=== PATIENT | female | born 1995 | race Caucasian/White ===

== ENCOUNTER 2020-10-30 12:47 | Outpatient (REF) | payer OTHER, SELFPAY | END 2020-10-30 12:48 | disposition home or self-care (01) | LOC: HO.LAB 12:47 | PROVIDERS: Visit Provider Internal Medicine | DX: Z20.828 Contact with and (suspected) exposure to other viral communicable diseases (principal) | CPT/HCPCS: C9803; U0003 ==

== ENCOUNTER 2021-05-17 12:59 | Outpatient (REF) | payer OTHER, SELFPAY ==
[2021-05-18 02:28] LABS: CT PCR NOT DETECTED (Not Detect.); NG PCR NOT DETECTED (Not Detect.)
[2021-05-18 11:16] LABS: BV Int Neg Control Negative (Negative); BV Int Pos Control Positive (Positive)
== END 2021-05-17 13:00 | disposition home or self-care (01) ==
LOC: HO.LAB 12:59
PROVIDERS: Visit Provider Obstetrics & Gynecology
DX: Z01.419 Encounter for gynecological examination (general) (routine) without abnormal findings (principal); Z11.3 Encounter for screening for infections with a predominantly sexual mode of transmission
CPT/HCPCS: 81025; 87480; 87491; 87510; 87591; 87660

== ENCOUNTER 2021-10-04 10:18 | Emergency (ER) | payer OTHER, SELFPAY ==
[2021-10-04 10:31] VITALS: BP 117/73; PULSE 113; RESP 16; TEMP 37.2; O2SAT 96; BMI 27.8
--- NOTE | 2021-10-04 11:11 | ED.GENADULT ---
HPI - General Adult General Chief complaint: General Medical Stated complaint: vomiting Time Seen by Provider: 10/04/21 10:39 History of Present Illness HPI narrative: Patient is 26 years old presented today with having generalized malaise aches nausea family's been coughing congested upper respiratory symptoms. Patient did not get vaccinated for COVID. Symptoms been ongoing for 3 days. Positive total body malaise. Minimal coughing. Positive nausea. Positive diarrhea. No abdominal cramping. Related Data Previous Rx's Medication Instructions Recorded norelgestromin 150 mcg-e.estradiol 1 patch TRANSDERMAL QWEEK #3 ea 05/17/21 35 mcg/24 hr weekly transderm patch (Xulane) ibuprofen 400 mg tablet 400 mg PO Q6H PRN #20 tab 10/04/21 ondansetron HCl 4 mg tablet 4 mg PO Q8H PRN #10 tab 10/04/21 (Zofran) Allergies Allergy/AdvReac Type Severity Reaction Status Date / Time No Known Allergies Allergy Verified 05/17/21 13:09 Review of Systems Review of Systems: Positive generalized malaise Positive nausea Minimal coughing No change in smell or taste Yes all other systems are reviewed and are negative [facility] Past Medical History Medical History Anemia Surgical History History of delivery Social History Social History Advance Directives: No Patient : No Physical Exam Vital Signs: Vital Signs: Last Vital Signs Temp 98.9 F 10/04/21 10:31 Pulse 113 H 10/04/21 10:31 Resp 16 10/04/21 10:31 BP 117/73 10/04/21 10:31 Pulse Ox 96 10/04/21 10:31 Body Mass Index 27.8 Appearance: Alert. Oriented X3. No acute distress. Eyes: Pupils equal, round and reactive to light. ENT: Pharynx normal. Neck: Normal inspection. Neck supple. No lymph nodes noted. No crepitus CVS: Normal heart rate and rhythm. Pulses normal. Normal S1 and S2 Respiratory: No respiratory distress. Breath sounds normal. No Wheezing. No rales Abdomen: Soft and nontender. No rigidity. No distention. good BS x4 Skin: Skin warm and dry. Normal skin color. Normal skin turgor. Extremities: No lower extremity edema. Neurovascular intact to all extremities. No Lacerations. No Rash Neuro: Oriented X 3. No motor deficit. No sensory deficit. Moving all extermities. No slurred speech Medical Decision Making MDM Narrative Medical decision making narrative: Well-appearing flu RSV COVID were negative. Will discharge patient home. Lots of fluid hydrate Motrin for aches. In stable condition. Lab Data Labs: Lab Results 10/04/21 Range/Units Unknown Influenza Type A (PCR) NEGATIVE (Negative) Influenza Type B (PCR) NEGATIVE (Negative) RSV RNA Qual (PCR) NEGATIVE (Negative) SARS-CoV-2 RNA (RT-PCR) NEGATIVE (Negative) Discharge Plan Discharge Clinical Impression: Acute viral syndrome Patient Disposition: Home, Self-Care Instructions: Viral Syndrome (ED) Prescriptions: New ondansetron HCl [Zofran] 4 mg tablet 4 mg PO Q8H PRN (Reason: nausea and vomiting) Qty: 10 RF: 0 ibuprofen 400 mg tablet 400 mg PO Q6H PRN (Reason: pain) Qty: 20 RF: 0 No Action Xulane 150-35 mcg/24 hr patch weekly 1 patch transdermal QWEEK Qty: 3 RF: 11
[2021-10-04 12:45] LABS: Influenza A PCR NEGATIVE (Negative); Influenza B PCR NEGATIVE (Negative); Resp Syncy Virus RNA Qual PCR NEGATIVE (Negative); SARS COV2 PCR INHOUSE NEGATIVE (Negative)
== END 2021-10-04 14:10 | disposition home or self-care (01) ==
PROVIDERS: Emergency Provider Emergency Medicine Emergency Medical Services
DX: B34.9 Viral infection, unspecified (principal); Z20.822 Contact with and (suspected) exposure to COVID-19
CPT/HCPCS: 0241U; 36415; 99282; 99283

== ENCOUNTER 2022-06-21 20:04 | Inpatient (IN) | payer OTHER, SELFPAY ==
--- NOTE | ~2022-06-21 | CT_ITS ---
EXAMINATION: CT ANGIOGRAM OF THE CHEST WITH AND WITHOUT CONTRAST (CT PULMONARY ANGIOGRAM FOR PE) CLINICAL INFORMATION: Reason for Exam tachycardic, hemoptysis? high dimer COMPARISON: CT abdomen/pelvis dated 02/14/2014 are couple areas of discrete increased attenuation within the diffusely fatty infiltration TECHNIQUE: Prior to contrast administration, noncontrast localization images were obtained. Subsequently, multidetector volumetric imaging was performed from the thoracic inlet to below the diaphragms following the administration of 65 mL Omnipaque 350 intravenous contrast. No contrast reaction reported Sagittal, coronal, and MIP oblique sagittal reformatted images were obtained on the CT workstation, uploaded to PACS, and reviewed. This CT examination was performed using dose optimization techniques as appropriate, variously including the following: *Automated exposure control *Adjustment of mA and/or kV according to patient size (this includes techniques or standardized protocols for targeted exams where dose is matched to indication/reason for exam; i.e. extremities or head) *Use of iterative reconstruction technique Total exam dose-length product 188 mGy-cm FINDINGS: QUALITY OF STUDY/CONTRAST BOLUS: Satisfactory. PULMONARY ARTERIES: No central or segmental pulmonary emboli. THORACIC AORTA: No aneurysm or dissection. LUNG: No focal consolidation. There is a 3 mm nodule within right lower lobe. No additional pulmonary nodules. PLEURA: No pleural effusion or pneumothorax. MEDIASTINUM: Normal heart size. No pericardial effusion. No hilar or mediastinal lymphadenopathy. No evidence of septal bowing or right heart strain. CHEST WALL/AXILLA: No axillary or internal mammary lymphadenopathy. OSSEOUS STRUCTURES: No acute or suspicious osseous abnormality. UPPER ABDOMEN: Marked diffuse hepatic steatosis. There are a couple areas of relatively increased attenuation within the diffusely fatty hepatic parenchyma, notably within segment 8 near the IVC and laterally, most compatible with areas of sparing as vessels are seen coursing through them. Focal sparing present within the gallbladder fossa dorsal aspect of the medial segment.. CT/CT angio chest PE protocol IMPRESSION: * No pulmonary embolism. * No acute pulmonary parenchymal abnormalities. * Incidental 3 mm nodule within the right lower lobe, and punctate nodule in the lateral left upper lobe of doubtful clinical significance. Fleischner Society guidelines do not apply in patients of this age. The decision whether or not to surveillance nodules of this size in patients of this age is clinical. * Severe diffuse hepatic steatosis. VTE: NEGATIVE
--- NOTE | ~2022-06-21 | CT_ITS ---
EXAMINATION: CT HEAD WITHOUT CONTRAST CLINICAL INFORMATION: Fall with question loss of consciousness and acute mental status change. COMPARISON: Head CT 12/29/2018 TECHNIQUE: Imaging was performed from the skull base to vertex without intravenous administration of contrast. This CT examination was performed using dose optimization techniques as appropriate, variously including the following: *Automated exposure control *Adjustment of mA and/or kV according to patient size (this includes techniques or standardized protocols for targeted exams where dose is matched to indication/reason for exam; i.e. extremities or head) *Use of iterative reconstruction technique Total exam dose length product: 700 mGy-cm FINDINGS: No intra or extra-axial fluid collection, hemorrhage, or mass. No ventriculomegaly. No midline shift or herniation. Basal cisterns are patent. Mishra-white matter differentiation is maintained. No territorial encephalomalacia. No significant volume loss. There is no abnormal attenuation within the brain parenchyma. No calvarial fracture or soft tissue abnormality. Mucosal thickening with complete opacification of the visualized left maxillary antrum and anterior left ethmoid air cells. Mastoid air cells are normally aerated. CT/CT head/brain wo con IMPRESSION: 1. No acute intracranial pathology. 2. Left maxillary and ethmoid paranasal sinus disease.
--- NOTE | ~2022-06-21 | MR_ITS ---
EXAMINATION: MR ABDOMEN WITHOUT AND WITH CONTRAST CLINICAL INFORMATION: Follow up liver lesion seen on CT. COMPARISON: Previous CT of the abdomen and pelvis most recent 06/22/2022. TECHNIQUE: MR abdomen was performed without and with use of 7.5 mL intravenous Gadavist gadolinium contrast. Postcontrast images are performed in multiphase dynamic sequences. Imaging was performed in 3 planes. FINDINGS: LUNG BASES: The visualized lung bases are unremarkable. LIVER, GALLBLADDER, AND BILIARY TREE: The liver loses signal on out of phase sequences suggestive of severe fatty infiltration. The liver is normal in size and contour. There are 4 focal liver lesions. These measure 0.5 x 2.7 cm in the central right, 2.3 x 2 cm in the peripheral right lobe, 2.5 x 4 cm in the medial segment of the left lobe and 1 cm in the lateral segment of the left lobe. There is slightly low signal on T1-weighted sequences and high signal on T2-weighted sequences. These demonstrate early arterial phase enhancement and remain enhanced with respect to the liver on all later sequences following blood pool. There may be a right T2 nonenhancing central scar in the 2.3 x 2 cm lesion in the peripheral right lobe. Signal and enhancement pattern is not characteristic of hemangiomas. This may represent focal nodular hyperplasia. Differential would include multiple liver adenomas although no increased fat signal is seen and atypical appearance of focal fatty sparing, particularly 2.5 x 4 cm lesion in the medial segment of the left lobe. Malignant process cannot be completely excluded and short-term follow-up liver MRI in 3 months with Eovist is recommended. The gallbladder is normal. There is no intrahepatic or extrahepatic biliary duct dilatation. PANCREAS: Unremarkable. SPLEEN: Normal. ADRENAL GLANDS: Normal. KIDNEYS AND URETERS: The kidneys are normal in size, shape, and enhance symmetrically. There is a 1 cm right renal cyst. No hydronephrosis. No perinephric stranding. GASTROINTESTINAL TRACT: No bowel obstruction. No ascites or fluid collection. ABDOMINAL WALL: No significant hernia is appreciated. LYMPH NODES: No lymphadenopathy. VASCULAR: Unremarkable. OSSEOUS STRUCTURES: Marrow signal normal. MR/MR abdomen wo/w con IMPRESSION: Fatty liver. Multiple liver lesions, question representing areas of focal nodular hyperplasia. Differential would include liver adenomas although fat signal is not seen and atypical appearance of areas of focal fatty sparing. Signal and enhancement pattern is not suggestive of multiple hemangiomas. Malignant liver lesions cannot be completely excluded and short-term follow-up liver MRI with Eovist contrast in 3 months is recommended. Right renal cyst.
--- NOTE | ~2022-06-21 | CT_ITS ---
EXAMINATION: CT ABDOMEN AND PELVIS WITH CONTRAST CLINICAL INFORMATION: Abdominal pain. COMPARISON: 02/14/2014 TECHNIQUE: Multidetector volumetric images were obtained from the superior aspect of the liver through the pubic symphysis following administration 85 mL of Omnipaque 350 intravenous contrast. Sagittal and coronal reformatted images were obtained on the technologist's workstation. Oral contrast: No This CT examination was performed using dose optimization techniques as appropriate, variously including the following: *Automated exposure control *Adjustment of mA and/or kV according to patient size (this includes techniques or standardized protocols for targeted exams where dose is matched to indication/reason for exam; i.e. extremities or head) *Use of iterative reconstruction technique DLP: 653 mGy-cm FINDINGS: LUNG BASES: Mild dependent atelectasis. LIVER, GALLBLADDER, AND BILIARY TREE: Relative hypoattenuation of the hepatic parenchyma as compared to the spleen is most consistent with steatosis. Liver is at the upper limits of normal in size. Multiple lesions are present in the liver with increased attenuation is compared to the surrounding steatosis parenchyma. The largest of these measures 3.2 x 2.1 cm in greatest transaxial dimensions and, as seen on image 17/27 of series 3, extends into the adjacent right hepatic vein. Additional lesions include a peripheral 2.5 cm lesion in segment 5/8 laterally,, a 1.9 cm subcapsular lesion at the inferior aspect of hepatic segment 5. A 2.5 cm lesion within hepatic segment 4A/4B and a 1.1 cm lesion in the posterior aspect of segment 2. No biliary ductal dilatation. By tears excretion of contrast material is evident in the gallbladder. The gallbladder is otherwise unremarkable with no evidence of radiopaque gallstones, gallbladder wall thickening, or obvious pericholecystic inflammatory changes. PANCREAS: Unremarkable. SPLEEN: Unremarkable. ADRENAL GLANDS: Unremarkable. KIDNEYS AND URETERS: The kidneys are normal in size, shape, and attenuation. No hydronephrosis, hydroureter, or calculi seen. No perinephric stranding. BLADDER: Unremarkable. GASTROINTESTINAL TRACT: Stomach, small bowel, and colon are normal in caliber without bowel wall thickening or surrounding inflammatory changes. Small moderate retroperitoneal free fluid is evident in the pelvis, most notably at the right perirectal location, measuring fluid attenuation (10 Hounsfield units). No free air. Appendix is normal. ABDOMINAL WALL: No hernia. Prior section. 17 is gas in the anterior abdominal soft tissues, possibly injection related. LYMPH NODES: Normal. VASCULAR: Slight prominence of the gonadal veins. No acute vascular findings. PELVIC VISCERA: scar at the lower uterine segment. Uterus is otherwise normal in appearance. An involuting follicle/corpus luteum is evident at the left ovary with crenulated margins and peripheral enhancement. This is of doubtful clinical significance. No recommend imaging follow-up. OSSEOUS STRUCTURES: Unremarkable. CT/CT abdomen pelvis w con IMPRESSION: Small volume of low attenuation intrapelvic free fluid, likely physiologic. No acute intra-abdominal or intrapelvic findings. Hepatic steatosis with multiple new soft tissue attenuation hepatic lesions which were not present in 2014 and measure up to 3.2 cm. Further characterization of these lesions with MRI of the abdomen with and without contrast is advised. Focal subcutaneous gas in the subcutaneous fat of the anterior abdominal wall, possibly injection related. Fleischner guidelines were followed.
[2022-06-21 20:12] VITALS: PULSE 147; PULSE 154; RESP 40; O2SAT 95; O2SAT 98; BMI 25.0
--- NOTE | 2022-06-21 20:18 | ECG_ITS ---
Test Reason : TACHYCARDIA Blood Pressure : / mmHG Vent. Rate : 137 BPM Atrial Rate : 137 BPM P-R Int : 132 ms QRS Dur : 074 ms QT Int : 304 ms P-R-T Axes : 063 073 028 degrees QTc Int : 459 ms Sinus tachycardia Otherwise normal ECG No previous ECGs available Referred By: Elina Moran Electronically Signed By:OLIVIA LEVY
--- NOTE | 2022-06-21 20:22 | ED.GENADULT ---
HPI - General Adult General Chief complaint: General Medical Stated complaint: hyperventilating , vomiting blood Time Seen by Provider: 06/21/22 20:11 Source: EMS Mode of arrival: EMS Limitations: altered mental status History of Present Illness HPI narrative: Patient comes to the emergency room via EMS. Per EMS and patient's sister, 1 hour prior to arrival patient was home, talking to her significant other was in the stationed in [place]. The patient's significant other heard a thud and patient was not responding on the phone. He called the patient's sister who found the patient hyperventilating and vomiting. According to the patient's sister, there was blood in the vomit. They also found nearby and empty bottle of Tylenol. The patient's sister states that the patient has no history of previous SI attempts, anxiety, depression or any psychiatric illness. The patient's sister believes that if she took any medication, it was maximum 102 tablets. The patient is hyperventilating and unable to answer any questions Related Data Previous Rx's Medication Instructions Recorded norelgestromin 150 mcg-e.estradiol 1 patch transdermal QWEEK #3 ea 05/17/21 35 mcg/24 hr weekly transderm patch (Xulane) ibuprofen 400 mg tablet 400 mg PO Q6H PRN pain #20 tabs 10/04/21 ondansetron HCl 4 mg tablet 4 mg PO Q8H PRN nausea and 10/04/21 (Zofran) vomiting #10 tabs Allergies Allergy/AdvReac Type Severity Reaction Status Date / Time No Known Allergies Allergy Verified 05/17/21 13:09 Review of Systems Review of Systems: Yes Unobtainable due to mental condition [facility] Past Medical History Medical History Anemia Surgical History History of delivery Social History Social History Advance Directives: No Advance Directives Information Provided: No Physical Exam ED Vital Signs: Vital Signs - 24 hr 06/21/22 20:12 06/21/22 21:03 06/21/22 21:25 Temperature 101.4 F H Pulse Rate 154 H 125 H 115 H Respiratory Rate 40 H 24 H Blood Pressure 94/51 L Pulse Oximetry 95 96 99 Oxygen Delivery Method Room Air Room Air Room Air 06/21/22 21:40 06/21/22 23:33 06/21/22 23:40 Temperature 98.2 F 98.2 F Pulse Rate 113 H 100 Respiratory Rate 20 Blood Pressure 101/53 L 93/53 L Pulse Oximetry 97 Oxygen Delivery Method Room Air 06/22/22 01:09 06/22/22 01:55 06/22/22 02:00 Temperature Pulse Rate 107 H 55 90 Respiratory Rate 18 Blood Pressure 80/36 L 92/49 L 112/71 Pulse Oximetry 98 Oxygen Delivery Method Room Air 06/22/22 02:55 06/22/22 02:58 Temperature Pulse Rate 99 90 Respiratory Rate Blood Pressure 80/45 L 100/60 Pulse Oximetry 96 Oxygen Delivery Method Room Air BMI result Body Mass Index 25.0 Course Course Course Narrative: Seemed patient was having a panic attack on arrival, patient was given 4 mg of IV midazolam. Patient significantly uvula, patient was able to talk to us calmly and stop hyperventilating. Patient noted to be hypotensive, patient's blood pressure change likely secondary to Versed. Patient received 0.1 mg of IV push of phenylephrine to help with the blood pressure. Now 100 systolic. D-dimer elevated, CT scan for pulmonary embolism negative for PE. Patient likely has a viral illness. However, patient did also have a panic attack. Patient no longer febrile, patient requesting pain medication for pain ?all over?, patient given 1 dose of IV Toradol. Patient's magnesium 1.4, repleted with IV Mag 2 g Patient needed a 2nd dose of phenylephrine. Since then, patient has maintained a blood pressure of 112/71 and heart rate in the 90s. I discussed the patient with our nurse practitioner from the intensive care unit. At this time, if the patient's blood pressure or heart rate decreases, we may give a 3rd dose of phenylephrine. If the patient's blood pressure keeps dropping, we will need to call Dr. Rasheed and have the patient admitted to the ICU for further monitoring 03:00: His blood pressure continues to drop. At 3rd dose of phenylephrine will be given, also 0.2 mg of flumazenil will be given. I discussed the patient with Dr. Rasheed, patient will be going to ICU Medical Decision Making Lab Data Result diagrams: 06/21/22 20:42 06/21/22 20:42 Labs: Lab Results 06/21/22 06/21/22 06/21/22 Range/Units 20:42 20:42 20:42 WBC 12.2 H (4.8-10.8) X10*3/uL RBC 4.67 (4.20-5.50) X10*6/uL Hgb 11.5 L (12.0-16.0) g/dl Hct 36.5 L (37.0-47.0) % MCV 78.2 L (80.0-98.0) fL MCH 24.6 L (27.0-33.0) pg MCHC 31.5 (31.0-35.0) g/dl RDW 15.0 (11.0-16.0) % Plt Count 366 (160-400) X10*3/uL MPV 9.8 (9.4-12.3) fL Immature Gran % (Auto) 0.4 (0.0-0.4) % Neut % (Auto) 89.7 H (45-73) % Lymph % (Auto) 7.0 L (20-40) % [place] % (Auto) 2.0 (2-11) % Eos % (Auto) 0.6 (0-4) % Baso % (Auto) 0.3 (0-2) % Lymph # (Auto) 0.9 L (1.2-4.9) X10*3/uL [place] # (Auto) 0.2 (0.1-1.2) X10*3/uL Eos # (Auto) 0.1 (0.0-0.4) X10*3/uL Baso # (Auto) 0.0 (0.0-0.2) X10*3/uL Abs Immat Gran (auto) 0.05 H (0.00-0.03) X10*3/uL Absolute Neuts (auto) 11.0 H (2.0-8.3) x10*3/uL Absolute Nucleated RBC 0.000 (0.0-0.012) X10*3/uL Nucleated RBC % (auto) 0.0 (0.0-0.2) /100WBC PT (10.0-13.1) SEC INR (0.9-1.1) D-Dimer High Sensitivty NG/ML VBG pH (7.32-7.43) VBG pCO2 mmHg VBG pO2 mmHg VBG HCO3 (22-26) mmol/L VBG O2 Saturation % VBG Base Excess mmol/L Sodium 140 (135-145) mmol/L Potassium 3.4 (3.3-5.1) mmol/L Chloride 107 (96-108) mmol/L Carbon Dioxide 20 L (22-29) mmol/L Anion Gap 16 (12-20) BUN 12 (9-16) mg/dL Creatinine 0.80 (0.5-1.4) mg/dL Estim Creat Clear Calc 102.7 Estimated GFR > 60 Random Glucose 97 (60-115) mg/dL Lactic Acid (0.5-2.0) mmol/L Calcium 8.7 (8.4-10.2) mg/dL Magnesium 1.4 L* (1.6-2.6) mg/dL Total Bilirubin 0.4 (0.0-1.0) mg/dL Direct Bilirubin 0.2 (0.0-0.5) mg/dL AST 26 (5-31) U/L ALT 21 (0-31) U/L Alkaline Phosphatase 71 (39-117) U/L Troponin I High Sens (<3.5-17.0) ng/L Total Protein 7.1 (6.5-8.0) g/dL Albumin 4.0 (3.5-5.0) g/dL Lipase 78 (8-78) U/L Beta HCG, Quant < 2 mIU/mL Urine Color Urine Appearance Urine pH (5.0-8.0) Ur Specific [place] (1.005-1.025) Urine Protein (NEG-TRACE) MG/DL Urine Glucose (UA) (NEG) MG/DL Urine Ketones (NEG) MG/DL Urine Blood (NEG) Urine Nitrite (NEG) Ur Leukocyte Esterase (NEG) Salicylates < 5.0 L (15-30) mg/dL Urine Opiates Screen (Not Detect) Urine Fentanyl Screen (Not Detect) Acetaminophen < 1 (<30) mcg/mL Ur Barbiturates Screen (Not Detect) Ur Phencyclidine Scrn (Not Detect) Ur Amphetamines Screen (Not Detect) U Benzodiazepines Scrn (Not Detect) Urine Cocaine Screen (Not Detect) U Marijuana (THC) Screen (Not Detect) Ethyl Alcohol mg/dL COVID-19 (LAURO) Negative (Negative) COVID-19 Clin Com See Note 06/21/22 06/21/22 06/21/22 Range/Units 20:42 20:42 20:42 WBC (4.8-10.8) X10*3/uL RBC (4.20-5.50) X10*6/uL Hgb (12.0-16.0) g/dl Hct (37.0-47.0) % MCV (80.0-98.0) fL MCH (27.0-33.0) pg MCHC (31.0-35.0) g/dl RDW (11.0-16.0) % Plt Count (160-400) X10*3/uL MPV (9.4-12.3) fL Immature Gran % (Auto) (0.0-0.4) % Neut % (Auto) (45-73) % Lymph % (Auto) (20-40) % [place] % (Auto) (2-11) % Eos % (Auto) (0-4) % Baso % (Auto) (0-2) % Lymph # (Auto) (1.2-4.9) X10*3/uL [place] # (Auto) (0.1-1.2) X10*3/uL Eos # (Auto) (0.0-0.4) X10*3/uL Baso # (Auto) (0.0-0.2) X10*3/uL Abs Immat Gran (auto) (0.00-0.03) X10*3/uL Absolute Neuts (auto) (2.0-8.3) x10*3/uL Absolute Nucleated RBC (0.0-0.012) X10*3/uL Nucleated RBC % (auto) (0.0-0.2) /100WBC PT 12.2 (10.0-13.1) SEC INR 1.1 (0.9-1.1) D-Dimer High Sensitivty NG/ML VBG pH (7.32-7.43) VBG pCO2 mmHg VBG pO2 mmHg VBG HCO3 (22-26) mmol/L VBG O2 Saturation % VBG Base Excess mmol/L Sodium (135-145) mmol/L Potassium (3.3-5.1) mmol/L Chloride (96-108) mmol/L Carbon Dioxide (22-29) mmol/L Anion Gap (12-20) BUN (9-16) mg/dL Creatinine (0.5-1.4) mg/dL Estim Creat Clear Calc Estimated GFR Random Glucose (60-115) mg/dL Lactic Acid 2.0 (0.5-2.0) mmol/L Calcium (8.4-10.2) mg/dL Magnesium (1.6-2.6) mg/dL Total Bilirubin (0.0-1.0) mg/dL Direct Bilirubin (0.0-0.5) mg/dL AST (5-31) U/L ALT (0-31) U/L Alkaline Phosphatase (39-117) U/L Troponin I High Sens < 3.5 (<3.5-17.0) ng/L Total Protein (6.5-8.0) g/dL Albumin (3.5-5.0) g/dL Lipase (8-78) U/L Beta HCG, Quant mIU/mL Urine Color Urine Appearance Urine pH (5.0-8.0) Ur Specific [place] (1.005-1.025) Urine Protein (NEG-TRACE) MG/DL Urine Glucose (UA) (NEG) MG/DL Urine Ketones (NEG) MG/DL Urine Blood (NEG) Urine Nitrite (NEG) Ur Leukocyte Esterase (NEG) Salicylates (15-30) mg/dL Urine Opiates Screen (Not Detect) Urine Fentanyl Screen (Not Detect) Acetaminophen (<30) mcg/mL Ur Barbiturates Screen (Not Detect) Ur Phencyclidine Scrn (Not Detect) Ur Amphetamines Screen (Not Detect) U Benzodiazepines Scrn (Not Detect) Urine Cocaine Screen (Not Detect) U Marijuana (THC) Screen (Not Detect) Ethyl Alcohol mg/dL COVID-19 (LAURO) (Negative) COVID-19 Clin Com 06/21/22 06/21/22 06/21/22 Range/Units 20:42 20:42 20:47 WBC (4.8-10.8) X10*3/uL RBC (4.20-5.50) X10*6/uL Hgb (12.0-16.0) g/dl Hct (37.0-47.0) % MCV (80.0-98.0) fL MCH (27.0-33.0) pg MCHC (31.0-35.0) g/dl RDW (11.0-16.0) % Plt Count (160-400) X10*3/uL MPV (9.4-12.3) fL Immature Gran % (Auto) (0.0-0.4) % Neut % (Auto) (45-73) % Lymph % (Auto) (20-40) % [place] % (Auto) (2-11) % Eos % (Auto) (0-4) % Baso % (Auto) (0-2) % Lymph # (Auto) (1.2-4.9) X10*3/uL [place] # (Auto) (0.1-1.2) X10*3/uL Eos # (Auto) (0.0-0.4) X10*3/uL Baso # (Auto) (0.0-0.2) X10*3/uL Abs Immat Gran (auto) (0.00-0.03) X10*3/uL Absolute Neuts (auto) (2.0-8.3) x10*3/uL Absolute Nucleated RBC (0.0-0.012) X10*3/uL Nucleated RBC % (auto) (0.0-0.2) /100WBC PT (10.0-13.1) SEC INR (0.9-1.1) D-Dimer High Sensitivty 1010 NG/ML VBG pH 7.62 H* (7.32-7.43) VBG pCO2 19 mmHg VBG pO2 159 mmHg VBG HCO3 20 L (22-26) mmol/L VBG O2 Saturation 99.0 % VBG Base Excess 1.4 mmol/L Sodium (135-145) mmol/L Potassium (3.3-5.1) mmol/L Chloride (96-108) mmol/L Carbon Dioxide (22-29) mmol/L Anion Gap (12-20) BUN (9-16) mg/dL Creatinine (0.5-1.4) mg/dL Estim Creat Clear Calc Estimated GFR Random Glucose (60-115) mg/dL Lactic Acid (0.5-2.0) mmol/L Calcium (8.4-10.2) mg/dL Magnesium (1.6-2.6) mg/dL Total Bilirubin (0.0-1.0) mg/dL Direct Bilirubin (0.0-0.5) mg/dL AST (5-31) U/L ALT (0-31) U/L Alkaline Phosphatase (39-117) U/L Troponin I High Sens (<3.5-17.0) ng/L Total Protein (6.5-8.0) g/dL Albumin (3.5-5.0) g/dL Lipase (8-78) U/L Beta HCG, Quant mIU/mL Urine Color Urine Appearance Urine pH (5.0-8.0) Ur Specific [place] (1.005-1.025) Urine Protein (NEG-TRACE) MG/DL Urine Glucose (UA) (NEG) MG/DL Urine Ketones (NEG) MG/DL Urine Blood (NEG) Urine Nitrite (NEG) Ur Leukocyte Esterase (NEG) Salicylates (15-30) mg/dL Urine Opiates Screen (Not Detect) Urine Fentanyl Screen (Not Detect) Acetaminophen (<30) mcg/mL Ur Barbiturates Screen (Not Detect) Ur Phencyclidine Scrn (Not Detect) Ur Amphetamines Screen (Not Detect) U Benzodiazepines Scrn (Not Detect) Urine Cocaine Screen (Not Detect) U Marijuana (THC) Screen (Not Detect) Ethyl Alcohol < 10 mg/dL COVID-19 (LAURO) (Negative) COVID-19 Clin Com 06/21/22 06/21/22 Range/Units 21:41 21:41 WBC (4.8-10.8) X10*3/uL RBC (4.20-5.50) X10*6/uL Hgb (12.0-16.0) g/dl Hct (37.0-47.0) % MCV (80.0-98.0) fL MCH (27.0-33.0) pg MCHC (31.0-35.0) g/dl RDW (11.0-16.0) % Plt Count (160-400) X10*3/uL MPV (9.4-12.3) fL Immature Gran % (Auto) (0.0-0.4) % Neut % (Auto) (45-73) % Lymph % (Auto) (20-40) % [place] % (Auto) (2-11) % Eos % (Auto) (0-4) % Baso % (Auto) (0-2) % Lymph # (Auto) (1.2-4.9) X10*3/uL [place] # (Auto) (0.1-1.2) X10*3/uL Eos # (Auto) (0.0-0.4) X10*3/uL Baso # (Auto) (0.0-0.2) X10*3/uL Abs Immat Gran (auto) (0.00-0.03) X10*3/uL Absolute Neuts (auto) (2.0-8.3) x10*3/uL Absolute Nucleated RBC (0.0-0.012) X10*3/uL Nucleated RBC % (auto) (0.0-0.2) /100WBC PT (10.0-13.1) SEC INR (0.9-1.1) D-Dimer High Sensitivty NG/ML VBG pH (7.32-7.43) VBG pCO2 mmHg VBG pO2 mmHg VBG HCO3 (22-26) mmol/L VBG O2 Saturation % VBG Base Excess mmol/L Sodium (135-145) mmol/L Potassium (3.3-5.1) mmol/L Chloride (96-108) mmol/L Carbon Dioxide (22-29) mmol/L Anion Gap (12-20) BUN (9-16) mg/dL Creatinine (0.5-1.4) mg/dL Estim Creat Clear Calc Estimated GFR Random Glucose (60-115) mg/dL Lactic Acid (0.5-2.0) mmol/L Calcium (8.4-10.2) mg/dL Magnesium (1.6-2.6) mg/dL Total Bilirubin (0.0-1.0) mg/dL Direct Bilirubin (0.0-0.5) mg/dL AST (5-31) U/L ALT (0-31) U/L Alkaline Phosphatase (39-117) U/L Troponin I High Sens (<3.5-17.0) ng/L Total Protein (6.5-8.0) g/dL Albumin (3.5-5.0) g/dL Lipase (8-78) U/L Beta HCG, Quant mIU/mL Urine Color YELLOW Urine Appearance CLEAR Urine pH 5.5 (5.0-8.0) Ur Specific [place] 1.015 (1.005-1.025) Urine Protein NEG (NEG-TRACE) MG/DL Urine Glucose (UA) NEG (NEG) MG/DL Urine Ketones NEG (NEG) MG/DL Urine Blood NEG (NEG) Urine Nitrite NEG (NEG) Ur Leukocyte Esterase NEG (NEG) Salicylates (15-30) mg/dL Urine Opiates Screen Not Detected (Not Detect) Urine Fentanyl Screen Not Detected (Not Detect) Acetaminophen (<30) mcg/mL Ur Barbiturates Screen Not Detected (Not Detect) Ur Phencyclidine Scrn Not Detected (Not Detect) Ur Amphetamines Screen Not Detected (Not Detect) U Benzodiazepines Scrn POSITIVE H (Not Detect) Urine Cocaine Screen Not Detected (Not Detect) U Marijuana (THC) Screen Not Detected (Not Detect) Ethyl Alcohol mg/dL COVID-19 (LAURO) (Negative) COVID-19 Clin Com Imaging Data CT scan - head: Radiologist's impression: No intra or extra-axial fluid collection, hemorrhage, or mass. No ventriculomegaly. No midline shift or herniation. Basal cisterns are patent. Mishra-white matter differentiation is maintained. No territorial encephalomalacia. ?No significant volume loss. There is no abnormal attenuation within the brain parenchyma. No calvarial fracture or soft tissue abnormality. ?Mucosal thickening with complete opacification of the visualized left maxillary antrum and anterior left ethmoid air cells. Mastoid air cells are normally aerated. CT/CT head/brain wo con IMPRESSION: 1. No acute intracranial pathology. 2. Left maxillary and ethmoid paranasal sinus disease. CTA scan for PE: Radiologist's impression: FINDINGS: QUALITY OF STUDY/CONTRAST BOLUS: Satisfactory. PULMONARY ARTERIES: No central or segmental pulmonary emboli.? THORACIC AORTA: No aneurysm or dissection. LUNG: No focal consolidation. There is a 3 mm nodule within right lower lobe. No additional pulmonary nodules. PLEURA: No pleural effusion or pneumothorax. MEDIASTINUM: Normal heart size.? No pericardial effusion.? No hilar or mediastinal lymphadenopathy.? No evidence of septal bowing or right heart strain. CHEST WALL/AXILLA: No axillary or internal mammary lymphadenopathy. OSSEOUS STRUCTURES: No acute or suspicious osseous abnormality.? UPPER ABDOMEN: Marked diffuse hepatic steatosis. There are a couple areas of relatively increased attenuation within the diffusely fatty hepatic parenchyma, notably within segment 8 near the IVC and laterally, most compatible with areas of sparing as vessels are seen coursing through them. Focal sparing present within the gallbladder fossa dorsal aspect of the medial segment.. CT/CT angio chest PE protocol IMPRESSION: *? No pulmonary embolism. *? No acute pulmonary parenchymal abnormalities. *? Incidental 3 mm nodule within the right lower lobe, and punctate nodule in the lateral left upper lobe of doubtful clinical significance. Fleischner Society guidelines do not apply in patients of this age. The decision whether or not to surveillance nodules of this size in patients of this age is clinical. *? Severe diffuse hepatic steatosis. ? VTE: NEGATIVE Critical Care Time Critical Care Time Critical Care Time: Yes Total Critical Care Time: 90 Attestation: I have personally provided critical care time. Time includes review of lab data, radiology results, discussion with consultants, and monitoring for potential decompensation. Intervention performed as documented. Discharge Plan Discharge Clinical Impression: Viral illness, Panic attack, Hypomagnesemia, Hypertension Patient Disposition: Admitted As Inpatient Prescriptions: No Action ondansetron HCl [Zofran] 4 mg tablet 4 mg PO Q8H PRN (Reason: nausea and vomiting) Qty: 10 0RF ibuprofen 400 mg tablet 400 mg PO Q6H PRN (Reason: pain) Qty: 20 0RF Xulane 150-35 mcg/24 hr patch weekly 1 patch transdermal QWEEK Qty: 3 11RF Rx Instructions: apply once weekly for 3 weeks of a 4-week cycle
[2022-06-21] MEDS: 0.9 % Sodium Chloride 1,000 ML 999 ML IVCONT ×2 (20:26→23:49)
[2022-06-21] MEDS: Midazolam HCl/PF 2 MG/2 ML VIAL 4 MG IVPUSH (20:26)
[2022-06-21 20:49] LABS: MANUAL DIFF FLAG NO
[2022-06-21 20:51] LABS: Basophils Percent Auto 0.3 % (0-2); Eosinophils Absolute Auto 0.1 X10*3/uL (0.0-0.4); Eosinophils Percent Auto 0.6 % (0-4); Hematocrit 36.5 % (37.0-47.0); Hemoglobin 11.5 g/dl (12.0-16.0); Imm Gran Abs Auto 0.05 X10*3/uL (0.00-0.03); Imm Gran Pct Auto 0.4 % (0.0-0.4); Lymphocytes Absolute Auto 0.9 X10*3/uL (1.2-4.9); Mean Corpuscular HGB Conc 31.5 g/dl (31.0-35.0); Mean Corpuscular Hemoglobin 24.6 pg (27.0-33.0); Mean Corpuscular Volume 78.2 fL (80.0-98.0); Mean Platelet Volume 9.8 fL (9.4-12.3); Monocytes Absolute Auto 0.2 X10*3/uL (0.1-1.2); Neutrophils Percent Auto 89.7 % (45-73); Platelet Count 366 X10*3/uL (160-400); Red Blood Count 4.67 X10*6/uL (4.20-5.50); White Blood Count 12.2 X10*3/uL (4.8-10.8)
[2022-06-21 20:56] LABS: VBG Base Excess 1.4 mmol/L; VBG HCO3 20 mmol/L (22-26); VBG pCO2 19 mmHg; VBG pH 7.62 (7.32-7.43); VBG pO2 159 mmHg
[2022-06-21 21:00] LABS: INTERNATIONAL NORM RATIO 1.1 (0.9-1.1); Prothrombin Time 12.2 SEC (10.0-13.1)
[2022-06-21 21:02] LABS: D Dimer High Sensitivity 1010 NG/ML
[2022-06-21 21:03] VITALS: PULSE 125; O2SAT 96
[2022-06-21 21:06] LABS: COVID-19 Test Negative (Negative); IDNOW Serial# 08D9AD1C
[2022-06-21 21:09] LABS: Ethanol < 10 mg/dL
[2022-06-21 21:19] LABS: HCG Quantitative < 2 mIU/mL; Troponin-I High Sensitivity < 3.5 ng/L (<3.5-17.0)
[2022-06-21 21:25] VITALS: BP 94/51; PULSE 115; RESP 24; TEMP 38.6; O2SAT 99
[2022-06-21] MEDS: Acetaminophen 325 MG TABLET 975 MG PO (21:34)
[2022-06-21 21:37] LABS: Acetaminophen LAB < 1 mcg/mL (<30); Alanine Aminotransferase 21 U/L (0-31); Alkaline Phosphatase 71 U/L (39-117); Anion Gap 16 (12-20); Aspartate Amino Transferase 26 U/L (5-31); Bilirubin Direct 0.2 mg/dL (0.0-0.5); Bilirubin Total 0.4 mg/dL (0.0-1.0); Blood Urea Nitrogen 12 mg/dL (9-16); Calcium 8.7 mg/dL (8.4-10.2); Carbon Dioxide 20 mmol/L (22-29); Chloride 107 mmol/L (96-108); Creatinine Clr Calc Pharmacy 102.7; Estimated Glomerular Filt Rate > 60; Glucose Random 97 mg/dL (60-115); Lipase 78 U/L (8-78); Magnesium 1.4 mg/dL (1.6-2.6); Potassium 3.4 mmol/L (3.3-5.1); Salicylate < 5.0 mg/dL (15-30); Sodium 140 mmol/L (135-145); Total Protein 7.1 g/dL (6.5-8.0)
[2022-06-21 21:40] VITALS: BP 101/53; PULSE 113
[2022-06-21 21:51] LABS: Appearance Urine CLEAR; Color Urine YELLOW; Glucose Urine UA NEG (NEG); Leukocyte Esterase Urine NEG (NEG); Nitrite Urine NEG (NEG); PH 5.5 (5.0-8.0); Specific Gravity - Urine 1.015 (1.005-1.025); Urine Blood NEG (NEG); Urine Ketones NEG (NEG); Urine Protein NEG (NEG-TRACE)
[2022-06-21 22:02] LABS: Amphetamine Screen Urine Not Detected (Not Detect); Barbiturates, Urine Not Detected (Not Detect); Benzodiazepines Screen Urine POSITIVE (Not Detect); Cannabinoid Screen Urine Not Detected (Not Detect); Cocaine Screen Urine Not Detected (Not Detect); Fentanyl, urine Not Detected (Not Detect); Opiate Screen Urine Not Detected (Not Detect); Phencyclidine Screen Urine Not Detected (Not Detect)
[2022-06-21 22:09] LABS: Venous Blood Gas Refer to POC result
[2022-06-21] MEDS: Magnesium Sulfate/H2O 2 GM/50 ML PIGGYBACK IV (22:13)
[2022-06-21 23:33] VITALS: BP 93/53; PULSE 100; RESP 20; TEMP 36.8; O2SAT 97
[2022-06-21 23:40] VITALS: TEMP 36.8
[2022-06-21] MEDS: ondansetron HCL 4 MG/2 ML VIAL IVPUSH (23:41)
[2022-06-21] MEDS: Ketorolac Tromethamine 15 MG/ML VIAL IVPUSH (23:44)
--- NOTE | 2022-06-21 23:45 | PC.NURSE ---
pt drowsy, oriented x2, vss - pt remains hypotensive, reporting increased nausea and generalized body aches/pain. provider notified, medicated per provider order.
[2022-06-22] VITALS (28 sets, daily range): BP systolic 80–132; BP diastolic 36–92; PULSE 55–116; RESP 14–26; TEMP 36.6–39.2; O2SAT 93–100
[2022-06-22] MEDS: iohexoL 350 MG/ML 100 ML INFUS..BTL 65 ML IV (00:02)
[2022-06-22] MEDS: 0.9 % Sodium Chloride 1,000 ML 999 ML IVCONT (00:32)
[2022-06-22] MEDS: Phenylephrine HCL 10 MG/ML VIAL IVPUSH ×3 (01:09→02:55)
[2022-06-22] MEDS: flumazeniL 0.5 MG/5 ML VIAL 0.2 MG IVPUSH (03:09)
--- NOTE | 2022-06-22 03:14 | PC.NURSE ---
This RN assuming care of pt, report given by ELISABETH Kelly. Pt found resting in bed, ICU PA @ bedside for primary eval. Pt medicated per JAN. Pt denies pain @ this time. VSS. Continue to monitor.
--- NOTE | 2022-06-22 03:41 | PM.CCHP ---
History of Present Illness Date of Service: 06/22/22 Attending physician on admission: Chris Rasheed Chief Complaint: hyperventilated Patient is a 27-year-old? female with no known past medical history presented to the emergency room today? with complaints of hyperventilating. ? According to EMS, The patient's significant other heard a thud and the patient was not responding on the phone.? He called the patient's sister who found the patient hyperventilating and vomiting. They also found nearby and empty bottle of Tylenol.? ? In the emergency room and was fever I will to 101.4, tachycardic 115, ? blood pressure 94/51,? and tachypnea? with respiratory rates ranging 20-30s. ? On arrival she was also noted to be hyperventilating? and unable to answer any questions? due? to a panic attack.? She received? 4 mg of Versed? with improvement of? hyperventilation.? Laboratory data was significant for? ABGs as follow:? 7.62/ 19/159/20.? WBC 13.3, lymphocytes 7, potassium 3.4, serum bicarb 20 and magnesium 1.4 Tylenol and salicylate levels negative.? U tox was negative.? ? Patient became more hypotensive with blood pressures? SBP 80s,? after Versed administration,? she received 3 L of normal saline? with no significant improvement.? She also required 3 doses of IV push phenylephrine? also with no significant improvement.? Will admit patient to the ICU for hypotension? and possible initiation of vasopressors Review of Systems Constitutional: Constitutional: Reports chills, Reports fever(s), Reports headache(s) and Reports malaise ENT: Reports headache(s) and Reports sore throat Cardiovascular: Cardiovascular: Denies lightheadedness and Denies dyspnea Respiratory: Respiratory: Denies cough and Denies dyspnea Gastrointestinal: Gastrointestinal: Denies diarrhea and Denies vomiting Musculoskeletal: Musculoskeletal: Denies numbness Neurologic: Reports headache(s) and Denies numbness Psychiatric: Psychiatric: Reports panic attacks PMFSH Past Medical History Medical History Anemia Surgical History Surgical History History of delivery Social History Social History Advance Directives: No Advance Directives Information Provided: No Meds Allergies Allergy/AdvReac Type Severity Reaction Status Date / Time No Known Allergies Allergy Verified 05/17/21 13:09 Active Medications: Current Medications Enoxaparin Sodium (Enoxaparin Sodium 40 Mg/0.4 Ml Syringe) 40 mg SUBCUT Q24H BRANDON Phenylephrine HCl 20 mg/ (Sodium Chloride) 252 mls @ 0 mls/hr IVCONT .Q0M BRANDON; Protocol Home Medications Medication Instructions Recorded Confirmed Last Taken Type No Known Home Meds 06/22/22 06/22/22 Unknown History Physical Exam Vital Signs: Vital Signs: Last Vital Signs Temp 98.2 F 06/21/22 23:40 Pulse 99 06/22/22 03:15 Resp 24 H 06/22/22 03:15 BP 100/51 L 06/22/22 03:15 Pulse Ox 97 06/22/22 03:15 O2 Del Method 06/22/22 03:15 BMI result Body Mass Index 25.0 Constitutional: Alert, in no distress. Mental Status: Oriented to person, place and time. Head: Normocephalic. Eyes: Pupils are equal, round and reactive to light. Extraocular muscles intact. Ear, Nose and Throat: Oropharynx clear, mucous membranes moist. Ears and nose without masses, lesions or deformities. Trachea midline. Neck: Supple, Full range of motion. Respiratory: CTA in all lung mccoy. Cardiovascular: S1 S2 regular. No murmurs, rubs or gallops. Gastrointestinal: Abdomen soft, non-tender, non-distended. Normal bowel sounds. No pulsatile mass. No hepatosplenomegaly. Genitourinary: No costovertebral angle tenderness. Neurologic: Cranial nerves II-XII grossly intact. No focal neurological deficits. Moves all extremities spontaneously. Sensation intact bilaterally. Skin: No rashes or lesions. No petechiae or purpura. Musculoskeletal: No cyanosis or clubbing. No gross deformities. Normal range of motion. Psychiatric: Normal mood and affect Results Labs CBC and Chem 7: 06/21/22 20:42 06/21/22 20:42 Labs: Laboratory Results - last 24 hr 06/21/22 06/21/22 06/21/22 20:42 20:42 20:42 MCV 78.2 L MCH 24.6 L MCHC 31.5 RDW 15.0 Plt Count 366 MPV 9.8 Immature Gran % (Auto) 0.4 Neut % (Auto) 89.7 H Lymph % (Auto) 7.0 L [place] % (Auto) 2.0 Eos % (Auto) 0.6 Baso % (Auto) 0.3 Lymph # (Auto) 0.9 L [place] # (Auto) 0.2 Eos # (Auto) 0.1 Baso # (Auto) 0.0 Abs Immat Gran (auto) 0.05 H Absolute Neuts (auto) 11.0 H Absolute Nucleated RBC 0.000 Nucleated RBC % (auto) 0.0 PT INR D-Dimer High Sensitivty VBG pH VBG pCO2 VBG pO2 VBG HCO3 VBG O2 Saturation VBG Base Excess Anion Gap 16 Estim Creat Clear Calc 102.7 Estimated GFR > 60 Random Glucose 97 Lactic Acid Calcium 8.7 Magnesium 1.4 L* Total Bilirubin 0.4 Direct Bilirubin 0.2 AST 26 ALT 21 Alkaline Phosphatase 71 Total Protein 7.1 Albumin 4.0 Lipase 78 Beta HCG, Quant < 2 Urine Color Urine Appearance Urine pH Ur Specific [place] Urine Protein Urine Glucose (UA) Urine Ketones Urine Blood Urine Nitrite Ur Leukocyte Esterase Salicylates < 5.0 L Urine Opiates Screen Urine Fentanyl Screen Acetaminophen < 1 Ur Barbiturates Screen Ur Phencyclidine Scrn Ur Amphetamines Screen U Benzodiazepines Scrn Urine Cocaine Screen U Marijuana (THC) Screen Ethyl Alcohol COVID-19 (LAURO) Negative COVID-19 Clin Com See Note 06/21/22 06/21/22 06/21/22 20:42 20:42 20:42 MCV MCH MCHC RDW Plt Count MPV Immature Gran % (Auto) Neut % (Auto) Lymph % (Auto) [place] % (Auto) Eos % (Auto) Baso % (Auto) Lymph # (Auto) [place] # (Auto) Eos # (Auto) Baso # (Auto) Abs Immat Gran (auto) Absolute Neuts (auto) Absolute Nucleated RBC Nucleated RBC % (auto) PT 12.2 INR 1.1 D-Dimer High Sensitivty 1010 VBG pH VBG pCO2 VBG pO2 VBG HCO3 VBG O2 Saturation VBG Base Excess Anion Gap Estim Creat Clear Calc Estimated GFR Random Glucose Lactic Acid 2.0 Calcium Magnesium Total Bilirubin Direct Bilirubin AST ALT Alkaline Phosphatase Total Protein Albumin Lipase Beta HCG, Quant Urine Color Urine Appearance Urine pH Ur Specific [place] Urine Protein Urine Glucose (UA) Urine Ketones Urine Blood Urine Nitrite Ur Leukocyte Esterase Salicylates Urine Opiates Screen Urine Fentanyl Screen Acetaminophen Ur Barbiturates Screen Ur Phencyclidine Scrn Ur Amphetamines Screen U Benzodiazepines Scrn Urine Cocaine Screen U Marijuana (THC) Screen Ethyl Alcohol COVID-19 ([facility]O) COVID-19 Clin Com 06/21/22 06/21/22 06/21/22 20:42 20:47 21:41 MCV MCH MCHC RDW Plt Count MPV Immature Gran % (Auto) Neut % (Auto) Lymph % (Auto) [place] % (Auto) Eos % (Auto) Baso % (Auto) Lymph # (Auto) [place] # (Auto) Eos # (Auto) Baso # (Auto) Abs Immat Gran (auto) Absolute Neuts (auto) Absolute Nucleated RBC Nucleated RBC % (auto) PT INR D-Dimer High Sensitivty VBG pH 7.62 H* VBG pCO2 19 VBG pO2 159 VBG HCO3 20 L VBG O2 Saturation 99.0 VBG Base Excess 1.4 Anion Gap Estim Creat Clear Calc Estimated GFR Random Glucose Lactic Acid Calcium Magnesium Total Bilirubin Direct Bilirubin AST ALT Alkaline Phosphatase Total Protein Albumin Lipase Beta HCG, Quant Urine Color YELLOW Urine Appearance CLEAR Urine pH 5.5 Ur Specific [place] 1.015 Urine Protein NEG Urine Glucose (UA) NEG Urine Ketones NEG Urine Blood NEG Urine Nitrite NEG Ur Leukocyte Esterase NEG Salicylates Urine Opiates Screen Urine Fentanyl Screen Acetaminophen Ur Barbiturates Screen Ur Phencyclidine Scrn Ur Amphetamines Screen U Benzodiazepines Scrn Urine Cocaine Screen U Marijuana (THC) Screen Ethyl Alcohol < 10 COVID-19 (LAURO) COVID-19 Clin Com 06/21/22 21:41 MCV MCH MCHC RDW Plt Count MPV Immature Gran % (Auto) Neut % (Auto) Lymph % (Auto) [place] % (Auto) Eos % (Auto) Baso % (Auto) Lymph # (Auto) [place] # (Auto) Eos # (Auto) Baso # (Auto) Abs Immat Gran (auto) Absolute Neuts (auto) Absolute Nucleated RBC Nucleated RBC % (auto) PT INR D-Dimer High Sensitivty VBG pH VBG pCO2 VBG pO2 VBG HCO3 VBG O2 Saturation VBG Base Excess Anion Gap Estim Creat Clear Calc Estimated GFR Random Glucose Lactic Acid Calcium Magnesium Total Bilirubin Direct Bilirubin AST ALT Alkaline Phosphatase Total Protein Albumin Lipase Beta HCG, Quant Urine Color Urine Appearance Urine pH Ur Specific [place] Urine Protein Urine Glucose (UA) Urine Ketones Urine Blood Urine Nitrite Ur Leukocyte Esterase Salicylates Urine Opiates Screen Not Detected Urine Fentanyl Screen Not Detected Acetaminophen Ur Barbiturates Screen Not Detected Ur Phencyclidine Scrn Not Detected Ur Amphetamines Screen Not Detected U Benzodiazepines Scrn POSITIVE H Urine Cocaine Screen Not Detected U Marijuana (THC) Screen Not Detected Ethyl Alcohol COVID-19 (LAURO) COVID-19 Clin Com Imaging Radiologist's Impressions: Impressions Head CT 06/21/22 20:57 IMPRESSION: 1. No acute intracranial pathology. 2. Left maxillary and ethmoid paranasal sinus disease. Chest CTA 06/22/22 00:06 IMPRESSION: * No pulmonary embolism. * No acute pulmonary parenchymal abnormalities. * Incidental 3 mm nodule within the right lower lobe, and punctate nodule in the lateral left upper lobe of doubtful clinical significance. Fleischner Society guidelines do not apply in patients of this age. The decision whether or not to surveillance nodules of this size in patients of this age is clinical. * Severe diffuse hepatic steatosis. VTE: NEGATIVE Assessment and Plan (1) Hypotension: Status: Acute (2) Panic attack: Status: Acute (3) Viral illness: Status: Acute (4) Hypomagnesemia: Status: Acute (5) Hypophosphatemia: Status: Acute Plan Neuro:? ?Panic attack-? patient denies history of previous panic attacks, but while in ED patient was noted to be hyperventilating and unable to speak. ABGs 7.62/19/159/20. Received 4mg of Versed due to shortage of ativan, with good relief of panic attack.?? Cardiac:?Hypotension-? likely from? versed,? no signs of severe infection. She received 3 L of fluids as well as 3 IV push of phenylephrine but? continue to be hypotensive. Flomazenil was also given. ? Will initiate phenylephrine drip Pulmonary:?? ?No acute issues Renal:? ?Hypo magnesemia-? likely from hyperventilating.? No EKG changes.? Replaced in the ED ?Hypophosphatemia-? will initiate replacement ID:? leukocytosis-? likely from a viral illness,? will send viral panel.? GI:? No acute issues.?? Heme/Onc:? No acute issues. Psych:? No acute issues. Miscellaneous:? No acute issues. ? Prophylaxis: ? Lovenox,? does not require GI prophylaxis Diet: ? Regular diet CODE: FULL code Critical care time:? x 30 minutes case discussed with attending Dr Rasheed Critical Care Time Critical Care Time (minutes): 30
--- NOTE | 2022-06-22 03:42 | PC.NURSE ---
Report given to Yuval REHABILITATION DIRECTOR.
[2022-06-22 03:57] LABS: Phosphorus 1.6 mg/dL (2.7-4.5)
[2022-06-22] MEDS: Phenylephrine HCL 20 MG in 0.9 % Sodium Chloride 250 ML 27.43 MG IVCONT (04:37)
[2022-06-22] MEDS: ondansetron HCL 4 MG/2 ML VIAL IVPUSH (05:07)
[2022-06-22] MEDS: Potassium Phosphate/NS 15 MMOL/250 ML PLAST..BAG 62.5 MMOL IV (05:10)
[2022-06-22] MEDS: Enoxaparin Sodium 40 MG/0.4 ML SYRINGE SUBCUT (05:10)
[2022-06-22 05:50] LABS: VBG Base Excess -3.7 mmol/L; VBG HCO3 20 mmol/L (22-26); VBG pCO2 32 mmHg; VBG pH 7.39 (7.32-7.43); VBG pO2 54 mmHg
[2022-06-22 06:14] LABS: Basophils Absolute Auto 0.1 X10*3/uL (0.0-0.2); Basophils Percent Auto 0.3 % (0-2); Eosinophils Percent Auto 0.1 % (0-4); Hematocrit 36.5 % (37.0-47.0); Hemoglobin 11.4 g/dl (12.0-16.0); Imm Gran Abs Auto 0.12 X10*3/uL (0.00-0.03); Imm Gran Pct Auto 0.5 % (0.0-0.4); Lymphocytes Percent Auto 8.4 % (20-40); MANUAL DIFF FLAG SCAN; Mean Corpuscular HGB Conc 31.2 g/dl (31.0-35.0); Mean Corpuscular Hemoglobin 24.9 pg (27.0-33.0); Mean Corpuscular Volume 79.9 fL (80.0-98.0); Mean Platelet Volume 10.2 fL (9.4-12.3); Monocytes Absolute Auto 0.5 X10*3/uL (0.1-1.2); Monocytes Percent Auto 2.1 % (2-11); Neutrophils Absolute Auto 20.5 x10*3/uL (2.0-8.3); Neutrophils Percent Auto 88.6 % (45-73); Platelet Count 388 X10*3/uL (160-400); Red Blood Count 4.57 X10*6/uL (4.20-5.50); Red Cell Distribution Width 15.3 % (11.0-16.0); SCAN SMEAR FLAG 1; White Blood Count 23.2 X10*3/uL (4.8-10.8)
[2022-06-22 06:35] LABS: Venous Blood Gas Refer to POC result
[2022-06-22 06:37] LABS: Albumin Level 3.6 g/dL (3.5-5.0); Anion Gap 13 (12-20); Blood Urea Nitrogen 8 mg/dL (9-16); Calcium 7.9 mg/dL (8.4-10.2); Carbon Dioxide 19 mmol/L (22-29); Chloride 112 mmol/L (96-108); Creatinine Clr Calc Pharmacy 117.4; Estimated Glomerular Filt Rate > 60; Glucose Random 88 mg/dL (60-115); Magnesium 2.3 mg/dL (1.6-2.6); Phosphorus 3.2 mg/dL (2.7-4.5); Sodium 140 mmol/L (135-145)
[2022-06-22 07:03] LABS: SLIDE REVIEW VERIFIED
--- NOTE | 2022-06-22 07:23 | PHA.MEDREC ---
Pharmacy Consult ? Medication Reconciliation Pharmacy has completed the medication reconciliation. Reviewed med rec done by Saloni Carter
--- NOTE | 2022-06-22 07:36 | PC.NURSE ---
AM note Ortho BPs checked: 7a lying 107/60 (79) HR 76 sitting 120/76 (91) HR 110 standing 125/82 (91) HR 100 States she feels slight dizziness with out of bed. No nausea; no pain. Alert, oriented x 4. HR sinus. Denies h/a, chest pain, sob. No adventitious heart sounds. Lungs clear, no cough. O2 sats 100% on ra. Used commode, 200 cc clear yellow urine. Presently patient states she feels like she's getting a fever. Temp is 98.9. Will monitor and medicate with tylenol as needed. Labs- significant increase in WBC noted. Mag and PO4 being replaced.
[2022-06-22] MEDS: iohexoL 300 MG/ML 100 ML INFUS..BTL 85 ML IV (09:46)
[2022-06-22] MEDS: Piperacillin Sodium/Tazobactam 3.375 GM in 0.9 % Sodium Chloride 50 ML IV ×3 (09:49→20:23)
--- NOTE | 2022-06-22 10:51 | PC.NURSE ---
Patient had episode of vomiting at 0830. Small amount bile with some strands of blood noted. Abdomen soft and free from tenderness. Patient feels weak but otherwise denies nausea following this episode. Patient did c/o chest pain. No diaphoresis or sob noted. BP, HR and rhythm unchanged.This was reported to Dr. Rasheed. Stat CT abdomen and pelvis done (results pending), IVABx started and BC x 2 ordered. Patient remains alert. Noted increase in HR to 120 when out of bed to commode. HR settles back to 80's quickly.
[2022-06-22 11:30] LABS: Influenza A PCR NEGATIVE (Negative); Influenza B PCR NEGATIVE (Negative); Resp Syncy Virus RNA Qual PCR NEGATIVE (Negative); SARS COV2 PCR INHOUSE NEGATIVE (Negative)
--- NOTE | 2022-06-22 14:27 | MHC.CM.PN ---
FEMALE 27 DX HYPOTENSION SHE LIVES BY HERSELF. HER IS IN THE SERVICES. SHE IS INDEPENDENT WITH ALL FUNCTIONAL MOBILITY, WORKS AND DRIVES. VAX 2X MODERNA. sShe does not have a PCP. Years ago she was seeing an [facility] PCP and [facility]. [facility] [place] was provided to patient for her choice of MD. DP home no services family transport home.
[2022-06-22] MEDS: Acetaminophen 325 MG TABLET 650 MG PO (16:28)
--- NOTE | 2022-06-22 16:35 | PC.NURSE ---
Patient has remained off elisabet gtt. Ate a bit of lunch upon return from CT scan. Using the commode and resting comfortably. At 4p patient states she feels shaky and weak and has a headache. Temp 102.5. Denies chest pain, abdominal pain, nausea. Vital signs stable. Neuro's intact. Abdomen remains soft. Lungs clear. No cough. Urine clear and without odor. Dr. Rasheed made aware via secure messaging. Tylenol given as ordered.
[2022-06-23] VITALS (16 sets, daily range): BP systolic 90–122; BP diastolic 54–82; PULSE 71–108; RESP 16–28; TEMP 36.2–37.2; O2SAT 90–98
[2022-06-23] MEDS: Piperacillin Sodium/Tazobactam 3.375 GM in 0.9 % Sodium Chloride 50 ML IV ×2 (02:50→07:56)
[2022-06-23] MEDS: ondansetron HCL 4 MG/2 ML VIAL IVPUSH (02:53)
[2022-06-23] MEDS: Acetaminophen 325 MG TABLET 650 MG PO (02:55)
[2022-06-23] MEDS: Enoxaparin Sodium 40 MG/0.4 ML SYRINGE SUBCUT (05:08)
[2022-06-23 06:37] LABS: VBG HCO3 17 mmol/L (22-26); VBG pCO2 26 mmHg; VBG pH 7.43 (7.32-7.43); VBG pO2 75 mmHg
[2022-06-23 06:37] LABS: Hematocrit 34.7 % (37.0-47.0); Hemoglobin 10.6 g/dl (12.0-16.0); Mean Corpuscular HGB Conc 30.5 g/dl (31.0-35.0); Mean Corpuscular Hemoglobin 24.1 pg (27.0-33.0); Mean Corpuscular Volume 78.9 fL (80.0-98.0); Platelet Count 317 X10*3/uL (160-400); Red Cell Distribution Width 15.3 % (11.0-16.0); Venous Blood Gas Refer to POC result; White Blood Count 10.7 X10*3/uL (4.8-10.8)
[2022-06-23 06:51] LABS: Alanine Aminotransferase 97 U/L (0-31); Albumin Level 3.6 g/dL (3.5-5.0); Alkaline Phosphatase 62 U/L (39-117); Anion Gap 13 (12-20); Aspartate Amino Transferase 83 U/L (5-31); Bilirubin Total 0.4 mg/dL (0.0-1.0); Blood Urea Nitrogen 6 mg/dL (9-16); C Reactive Protein 10.43 mg/dL (< or = 0.50); Calcium 8.3 mg/dL (8.4-10.2); Carbon Dioxide 20 mmol/L (22-29); Chloride 111 mmol/L (96-108); Creatinine Clr Calc Pharmacy 112.5; Estimated Glomerular Filt Rate > 60; Glucose Random 98 mg/dL (60-115); Phosphorus 2.3 mg/dL (2.7-4.5); Potassium 3.6 mmol/L (3.3-5.1); Sodium 140 mmol/L (135-145); Total Protein 6.5 g/dL (6.5-8.0)
[2022-06-23 07:07] LABS: Procalcitonin 13.99 ng/mL
--- NOTE | 2022-06-23 13:36 | P.PNCC_ITS ---
Subjective Subjective Date of Service: 06/23/22 Interval History: Mrs. Villalobos was admitted to the ICU early yesterday morning because of hypotension. The patient is a healthy and active 27-year-old woman with past medical history remarkable only for gestational diabetes.? Notably, she also has a strong family history of diabetes.? The patient lives at home with her 2 children and her ; her is currently in the , stationed in [place].? 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 On the night of , she had an episode of severe hyperventilation of unclear etiology, that was preceeded by an episode of chills and feverishness.? She was found by her sister hyperventilating and vomiting.? EMS was called and the patient was brought into the ED. the patient has no history of any kind of psychiatric illness, anxiety, or depression. In the ED, the patient was febrile to 101.4 and tachycardic.? Initial blood pressure 94/51.? The patient was hyperventilating to a degree that she was unable to answer any questions.? She seemed to be having a panic attack and was therefore given 4 mg IV midazolam.? After that, the patient calmed down, stopped hyperventilating, and was able to talk to the ED staff calmly. Labs in the ED were notable for a white count of 12, D-dimer of 1010, normal renal indices, bicarb of 20, normal LFTs, normal lipase.? Lactic acid was 2.0. ?Venous blood gas showed 7.62/19/+1. ?Urinalysis was negative, HCG was negative.? Tox screen was negative, COVID and influenza negative.? CTPA was n egative, although she was noted to have severe diffuse hepatic steatosis. After the midazolam, the patient became hypotensive which did not respond to fluids.? The patient was therefore admitted to the ICU and given phenylephrine. The following morning (yesterday morning), white count was up to 23.? Bicarb was down to 19.? There was a question of some mild abdominal tenderness.? The patient was therefore sent for an abdominal CT with contrast, which was notable for small volume intrapelvic free fluid, thought likely physiologic.? There were no acute intra-abdominal or intrapelvic findings.? Compared to a prior CT from 2013, there were multiple new soft tissue attenuation hepatic lesions, measuring up to 3.2 cm. The temperature was 101.1? yesterday morning. ?The neosynephrine was tapered off.? Blood cultures were drawn, and the patient was started on empiric Zosyn.? Yesterday afternoon, she spiked a temperature as high as 102.5 degrees.? Since then, she?s been afebrile.? Has not needed any further pressors. This morning, the patient feels and looks entirely well.? She wants to go home.? Heart rate is 70, blood pressure 107/67, she is breathing easy with sat of 99% on room air.? She is afebrile.? Chest is clear to auscultation.? Abdomen is benign. LABORATORY DATA:? Below.? Notably, white count is now down to 10.7.? Bicarb is 20.? Renal indices still normal.? Phosphorus is slightly low.? AST and ALT are bumped to 83/97.? CRP is 10, procalcitonin is 13.9. IMPRESSION: This is healthy 27-year-old woman admitted with hyperventilation and hypot ension. 1. Hyperventilation.? Etiology unclear.? ? panic attack. ?Treated with Versed.? Resolved.? No evidence of any psychiatric disease. 2. Hypotension of unclear etiology.? Very unlikely secondary to Versed (in the absence of other acute disease).? Now resolved. ?But given the fever on admission, elevated white count, and elevated PCT and CRP, sepsis has to be considered. 3. ID.? Seems to have or have had sepsis, of unclear etiology.? She obviously does not have pneumonia; her urine screen was negative; and blood cultures are so far negative at 26 hours. ?It?s particularly curious that her white count dropped from 23 to 10 after starting Zosyn. ? ??At this point in time she feels and seems entirely well, and would like to go home. ?But given the evidence above, and the fact that she has no one medically sophisticated at home, it?s not prudent to send her home without watching her for one more day. ?So far she?s had 24 hours of Zosyn. ?If everything goes well today and tonight, she can go home tomorrow with a 6-day course of Augmentin.? I have changed her over to Augmentin today so we can watch her in the hospital for one day off intravenous antibiotics.? I?ll write for a recheck of her WBC and PCT tomorrow morning.? I discussed with her that if she goes home tomorrow, if she feels bad at any time, she should return immediately to the ED. 4. Hepatic steatosis.? Given the patient's history and the CT findings, it has to be assumed that the patient is prediabetic.? I?ve added a Hb A1c to her labs from this morning. ?I?ve discussed that with her at length that it would be to her great benefit to make sure that she sees her personal physician for a check up annually. 5. Liver lesions on CT scan.? Discussed at length with both Dr. Kimble from Radiology and Dr. Nino from GI.? Most likely hemangiomas.? Have ordered an MRI for today or tomorrow.? She can get that before she goes home (to make sure the lesions aren?t an infectious etiology, which is unlikely at this point, based on the CT scan). 6. Hypophosphatemia.? Repleted orally. Stable for transfer to med-surg.? I will sign out to the hospitalists. Critical Care Time (minutes): 0 Physical Exam Vital Signs: Vital Signs: Last Vital Signs Temp 97.2 F 06/23/22 12:00 Pulse 98 06/23/22 13:00 Resp 24 H 06/23/22 13:00 BP 117/82 06/23/22 13:00 Pulse Ox 95 06/23/22 13:00 O2 Del Method 06/23/22 13:00 BMI result Body Mass Index 25.0 Objective Data Labs CBC & Chem 7: 06/23/22 06:19 06/23/22 06:19 Labs: Laboratory Results - last 24 hr 06/23/22 06/23/22 06/23/22 06:19 06:19 06:19 WBC 10.7 RBC 4.40 Hgb 10.6 L Hct 34.7 L MCV 78.9 L MCH 24.1 L MCHC 30.5 L RDW 15.3 Plt Count 317 MPV 10.0 Absolute Nucleated RBC 0.000 Nucleated RBC % (auto) 0.0 VBG pH VBG pCO2 VBG pO2 VBG HCO3 VBG O2 Saturation VBG Base Excess Sodium 140 Potassium 3.6 Chloride 111 H Carbon Dioxide 20 L Anion Gap 13 BUN 6 L Creatinine 0.73 Estim Creat Clear Calc 112.5 Estimated GFR > 60 Random Glucose 98 Calcium 8.3 L Phosphorus 2.3 L Magnesium 2.0 Total Bilirubin 0.4 AST 83 H ALT 97 H Alkaline Phosphatase 62 C-Reactive Protein 10.43 H Total Protein 6.5 Albumin 3.6 Carcinoembryonic Ag Procalcitonin 13.99 06/23/22 06/23/22 06:19 06:24 WBC RBC Hgb Hct MCV MCH MCHC RDW Plt Count MPV Absolute Nucleated RBC Nucleated RBC % (auto) VBG pH 7.43 VBG pCO2 26 VBG pO2 75 VBG HCO3 17 L VBG O2 Saturation 97.0 VBG Base Excess -5.0 Sodium Potassium Chloride Carbon Dioxide Anion Gap BUN Creatinine Estim Creat Clear Calc Estimated GFR Random Glucose Calcium Phosphorus Magnesium Total Bilirubin AST ALT Alkaline Phosphatase C-Reactive Protein Total Protein Albumin Carcinoembryonic Ag 1.10 Procalcitonin Microbiology Microbiology Results: Microbiology 06/22/22 11:16 Blood - Venous Blood Culture - Preliminary No growth after 24 hours. 06/22/22 11:16 Blood - Venous Blood Culture - Preliminary No growth after 24 hours. Quality Stroke Does the patient have a stroke diagnosis?: No VTE Prior VTE?: No VTE Risk Level:: Medical - low VTE Device Contraindication: Treatment Not Indicated VTE Drug Contraindication: N/A - Med Ordered
[2022-06-23] MEDS: Sodium,Potassium Phosphates POWD.PACK 2 PACKET PO (14:49)
[2022-06-23 15:09] LABS: Estimated Average Glucose 103 mg/dL; Hemoglobin A1c % 5.2 %
[2022-06-23] MEDS: Amoxicillin/Potassium Clav 875 MG TABLET PO (19:53)
[2022-06-24 03:42] VITALS: BP 110/68; PULSE 76; RESP 18; TEMP 36.5; O2SAT 98
[2022-06-24 07:17] LABS: MANUAL DIFF FLAG NO
[2022-06-24 07:29] LABS: Basophils Absolute Auto 0.1 X10*3/uL (0.0-0.2); Basophils Percent Auto 0.7 % (0-2); Eosinophils Absolute Auto 0.3 X10*3/uL (0.0-0.4); Eosinophils Percent Auto 4.1 % (0-4); Hematocrit 37.9 % (37.0-47.0); Hemoglobin 11.9 g/dl (12.0-16.0); Imm Gran Abs Auto 0.03 X10*3/uL (0.00-0.03); Imm Gran Pct Auto 0.4 % (0.0-0.4); Lymphocytes Absolute Auto 2.3 X10*3/uL (1.2-4.9); Lymphocytes Percent Auto 28.6 % (20-40); Mean Corpuscular HGB Conc 31.4 g/dl (31.0-35.0); Mean Corpuscular Hemoglobin 24.5 pg (27.0-33.0); Mean Corpuscular Volume 78.1 fL (80.0-98.0); Mean Platelet Volume 10.3 fL (9.4-12.3); Monocytes Absolute Auto 0.8 X10*3/uL (0.1-1.2); Monocytes Percent Auto 10.3 % (2-11); Neutrophils Absolute Auto 4.5 x10*3/uL (2.0-8.3); Neutrophils Percent Auto 55.9 % (45-73); Platelet Count 347 X10*3/uL (160-400); Red Blood Count 4.85 X10*6/uL (4.20-5.50); Red Cell Distribution Width 15.3 % (11.0-16.0); White Blood Count 8.1 X10*3/uL (4.8-10.8)
[2022-06-24 07:33] VITALS: BP 106/66; PULSE 77; RESP 15; TEMP 36.5; O2SAT 98
[2022-06-24 08:08] LABS: Procalcitonin 9.52 ng/mL
[2022-06-24] MEDS: Amoxicillin/Potassium Clav 875 MG TABLET PO (08:34)
[2022-06-24 11:06] VITALS: BP 113/75; PULSE 67; RESP 16; TEMP 36.4; O2SAT 99
[2022-06-24 15:11] VITALS: BP 116/68; PULSE 70; RESP 20; TEMP 36.5; O2SAT 100
--- NOTE | 2022-06-24 16:46 | P.DS_ITS ---
DS: Providers Provider Date of Service: 06/24/22 Date of admission: 06/22/22 03:19 Primary care physician: Mario Muniz MD Attending physician on discharge: Jay Downing Discharging clinician: Katie Duenas DS: Diagnosis Discharge Diagnosis (1) Hypotension: Status: Acute (2) Panic attack: Status: Acute (3) Viral illness: Status: Acute (4) Hypomagnesemia: Status: Acute (5) Hypophosphatemia: Status: Acute DS: Summary Hospital Course Hospital Course: HP as per admitting provider Patient is a 27-year-old? female with no known past medical history presented to the emergency room today? with complaints of hyperventilating. ? According to EMS, The patient's significant other heard a thud and the patient was not responding on the phone.? He called the patient's sister who found the patient hyperventilating and vomiting. They also found nearby and empty bottle of Tylenol.? In the emergency room and was fever I will to 101.4, tachycardic 115, ? blood pressure 94/51,? and tachypnea? with respiratory rates ranging 20-30s. ? On arrival she was also noted to be hyperventilating? and unable to answer any questions? due? to a panic attack.? She received? 4 mg of Versed? with improvement of? hyperventilation.?Laboratory data was significant for? ABGs as follow:? 7.62/ 19/159/20.? WBC 13.3, lymphocytes 7, potassium 3.4, serum bicarb 20 and magnesium 1.4 Tylenol and salicylate levels negative.? U tox was negative.?Patient became more hypotensive with blood pressures? SBP 80s,? after Versed administration,? she received 3 L of normal saline? with no significant improvement.? She also required 3 doses of IV push phenylephrine? also with no significant improvement.? Will admit patient to the ICU for hypotension? and possible initiation of vasopressors Hyperventilation. Unclear etiology seem like maybe a panic attack was given V ersed while in the ER and subsequently became hypotensive therefore she was transferred to ICU because IV fluids were not helping. She was treated with phenylephrine which did help. In the ER she was found to be feverish with temperature of a 101.4 degrees and had some episodes of vomiting. There was a question of sepsis however no clear etiology. Abdominal CT was obtained which showed multiple new soft tissue hepatic lesions measuring up to 3.2 cm. Abdominal MRI was then obtained which showed multiple liver lesions and rec follow up in 3 months. she should also follow up with gastroenerology as outpatient. She may need biopsy at some point. During the duration of her stay on the medical floor she did not exhibit any other signs of infection. Regarding the liver lesions this was discussed with radiologist as well as the training and documentation specialist and seemed more likely to be hemangiomas. Due to the fact that she did have a fever, some vomiting episodes and the hypotension which likely was medication related she will continue 6 more days of Augmentin at home. Otherwise she is stable to be discharged. She had no other significant medical history. Time Spent with Patient Time attestation: Total time spent providing and/or coordinating discharge services: Discharge coordination time: Greater than 30 minutes Quality: Safe Use of Opioids Does Pt have an Active Cancer Diagnosis on the Problem List?: No Quality: Stroke Does the patient have a stroke diagnosis?: No Physical Exam Vital Signs: Vital Signs: Last Vital Signs Temp 97.7 F 06/24/22 15:11 Pulse 70 06/24/22 15:11 Resp 20 06/24/22 15:11 BP 116/68 06/24/22 15:11 Pulse Ox 100 06/24/22 15:11 O2 Del Method 06/24/22 15:11 BMI result Body Mass Index 25.0 Appearing in no acute distress head is normocephalic atraumatic eyes pupils are PERRLA sclera is anicteric mouth throat mucous membranes are intact and moist neck is supple no lymphadenopathy, no JVD noted lung sounds are clear to auscultation heart regular rate rhythm, clear S1, S2 positive bowel sounds, abdomen is soft, nontender neuro patient is alert x3, no focal deficits DS: Data Data Completed and Pending Labs on day of discharge: Laboratory Results - last 24 hr 06/24/22 06/24/22 05:54 05:54 WBC 8.1 RBC 4.85 Hgb 11.9 L Hct 37.9 MCV 78.1 L MCH 24.5 L MCHC 31.4 RDW 15.3 Plt Count 347 MPV 10.3 Immature Gran % (Auto) 0.4 Neut % (Auto) 55.9 Lymph % (Auto) 28.6 [place] % (Auto) 10.3 Eos % (Auto) 4.1 H Baso % (Auto) 0.7 Lymph # (Auto) 2.3 [place] # (Auto) 0.8 Eos # (Auto) 0.3 Baso # (Auto) 0.1 Abs Immat Gran (auto) 0.03 Absolute Neuts (auto) 4.5 Absolute Nucleated RBC 0.000 Nucleated RBC % (auto) 0.0 Procalcitonin 9.52 Preliminary micro results at discharge 06/22/22 11:16 Blood Culture - Preliminary Blood - Venous No growth after 48 hours. 06/22/22 11:16 Blood Culture - Preliminary Blood - Venous No growth after 48 hours. Discharge Plan Discharge Anticipated Discharge Date/Time: 06/24/22 17:18 Patient Disposition: Home, Self-Care Discharge Diagnosis: Hyperventilation, panic attack Hypotension Hepatic steatosis Liver lesions Referrals: Mario Muniz MD [Primary Care Provider] - 1 Week Mary Correa MD [Physician] - 1 Week Discharge Medications: New amoxicillin-pot clavulanate 875-125 mg Tablet 1 tab PO Q12H Qty: 12 0RF Discharge Orders: Discharge Order (Routine); Ordered 06/24/22 Ordered By: Katie Duenas Diet: Advance to usual diet Activity on Discharge: As tolerated Stand Alone Forms: Patient Portal Discharge page Care Plan Goals: Complete resolution of symptoms Health Concerns: Hyperventilation, panic attack Hypotension Hepatic steatosis Liver lesions Plan of Treatment: Follow-up with your primary care provider as needed Assessment: See discharge summary
[2022-06-25 10:37] LABS: CA-125 9 U/mL (<35)
[2022-06-25 14:02] LABS: Alpha Fetoprotein 1.5 ng/mL
== END 2022-06-24 19:00 | disposition home or self-care (01) | DRG 207 ==
LOC: HO.ED 06-22 03:01 → HO.EDOVER 06-22 03:47 → HO.ICU 06-22 03:51 → HO.S3 06-23 17:02
PROVIDERS: Anesthesiology; Internal Medicine Pulmonary Disease; Admitting Provider Registered Nurse Community Health; Emergency Provider Emergency Medicine; PCP Family Medicine; Visit Provider Nurse Practitioner Acute Care
DX: I95.9 Hypotension, unspecified (principal); E83.39 Other disorders of phosphorus metabolism; B34.9 Viral infection, unspecified; D18.09 Hemangioma of other sites; F41.0 Panic disorder [episodic paroxysmal anxiety]; E83.42 Hypomagnesemia; Z20.822 Contact with and (suspected) exposure to COVID-19
CPT/HCPCS: 0241U; 36415; 70450; 71275; 74177; 74183; 80048; 80053; 80076; 80143; 80179; 80307; 81003; 82040; 82077; 82105; 82378; 82803; 83036; 83605; 83690; 83735; 84100; 84145; 84484; 84702; 85025; 85027; 85379; 85610; 86140; 86304; 87040; 87635; 93005; 96361; 96374; 96375; 96376; 99285; A9585; J1650; J1885; J2250; J2370; J2405; J2543; J3475; Q9967

== ENCOUNTER → 2022-07-08 14:33 | Outpatient (BNVA) | payer OTHER, SELFPAY | PROVIDERS: PCP Family Medicine; Visit Provider Internal Medicine | DX: S09.93XA Unspecified injury of face, initial encounter (principal); Y29.XXXA Contact with blunt object, undetermined intent, initial encounter | CPT/HCPCS: 70110; 99203 ==

== ENCOUNTER → 2022-07-10 10:17 | Outpatient (BNVA) | payer OTHER, SELFPAY | PROVIDERS: PCP Family Medicine; Visit Provider Physician Assistant | DX: S09.93XA Unspecified injury of face, initial encounter (principal); Y29.XXXA Contact with blunt object, undetermined intent, initial encounter | CPT/HCPCS: 99213 ==